=== PATIENT | female | born 1955 | race Caucasian/White ===

== ENCOUNTER 2016-12-13 10:31 | Day surgery (SDC) | payer BC ==
[2016-12-10 15:02] VITALS: BMI 25.8
[2016-12-13] MEDS ORDERED: MIDAZOLAM HCL 2 MG/2 ML SINGLE DOSE VIAL ONE (11:31)
[2016-12-13] MEDS ORDERED: ceFAZolin SODIUM 1 GM VIAL ONE (12:03)
[2016-12-13] MEDS ORDERED: ONDANSETRON 4 MG/2 ML VIAL ONE (12:05)
[2016-12-13] MEDS ORDERED: DEXAMETHASONE SOD PHOSPHATE 4 MG/1 ML VIAL ONE (12:05)
[2016-12-13] MEDS ORDERED: BUPIVACAINE HCL/PF 0.25% (2.5MG/ML) 10 ML VIAL IJ ONE (12:14)
[2016-12-13] MEDS ORDERED: ONDANSETRON 4 MG/2 ML VIAL IVPUSH ONE (13:02)
[2016-12-13] MEDS ORDERED: ONDANSETRON 4 MG/2 ML VIAL IVPUSH PRN (13:03)
[2016-12-13] MEDS ORDERED: oxyCODONE HCL 5 MG TABLET PO PRN ×2 (13:03)
[2016-12-13] MEDS ORDERED: LACTATED RINGERS SOLUTION 1,000 ML IV SCH (13:15)
--- NOTE | 2016-12-13 13:26 | OP ---
DATE OF OPERATION: 12/13/2016 PREOPERATIVE DIAGNOSIS: Left knee medial meniscal tear. POSTOPERATIVE DIAGNOSIS: Medial and lateral meniscal tears. PROCEDURE: Left knee arthroscopy with partial medial, partial lateral meniscectomies. SURGEON: Pablito Aguilar MD ADMISSION NURSE COORDINATOR: GERALD Clark. ANESTHESIA: General. POSTOPERATIVE CONDITION: Stable. COMPLICATIONS: None. TOURNIQUET TIME: 20 minutes. INDICATIONS: This is a pleasant woman who has been suffering from left knee pain. MRI demonstrated meniscal tearing. Treatment options including nonoperative versus operative management were discussed. Operative risks were reviewed in detail including bleeding, infection, neurovascular injury, need for further surgery, postoperative pain and stiffness, and progression of osteoarthritis. We discussed medical risks such as heart attack, stroke, DVT, PE, and . The patient voiced understanding. She elected to proceed. DESCRIPTION OF PROCEDURE: The patient was brought to the operating room, and after administration of general anesthesia, the left lower extremity was prepped and draped in the usual sterile fashion. A preoperative dose of antibiotics was given, and the usual time-out procedure was performed. At this point, the portals were marked out. They were injected subcutaneously with 0.25% Marcaine. The lateral portal was now incised using an 11 blade. The arthroscope was now passed into the knee. Examination of the patellofemoral joint demonstrated moderate arthrosis, more so on the patellar side. The arthroscope was now passed down the trochlea into the femoral notch. Here, the ACL and PCL were visualized to be intact. Passing the arthroscope medially, medial portal was now established under spinal needle localization. Examination of the femoral and tibial articular surfaces demonstrated mild superficial fraying of the articular cartilage. There was a tear of the posterior horn of the medial meniscus, which was complex in nature. Utilizing combination of meniscal biters and a shaver, this was debrided down to a stable base. The arthroscope was now passed into the lateral compartment. Here, a radial tear was seen at the body of the lateral meniscus. Again, utilizing the same instruments, the tear was debrided down to a stable base. At this point, the excess fluid was withdrawn from the knee. The portals were sutured using 3-0 nylon. The tourniquet was let down. Sterile dressings were placed. The patient was extubated and transferred to the recovery room in stable condition. [id number] [id number]
[2016-12-13 14:30] VITALS: TEMP 97.5
[2016-12-13 14:57] VITALS: BP 122/72; PULSE 78
== END 2016-12-13 14:55 | disposition home or self-care (01) ==
LOC: FASU 10:31
PROVIDERS: ATTEND Orthopaedic Surgery Sports Medicine
PROC: 0SBD4ZZ Excision of Left Knee Joint, Percutaneous Endoscopic Approach (ICD-10-PCS; 2016-12-13)
PROC: 0SBD4ZZ Excision of Left Knee Joint, Percutaneous Endoscopic Approach (ICD-10-PCS; principal; 2016-12-13 11:50)
DX: S83.242A Other tear of medial meniscus, current injury, left knee, initial encounter (principal); S83.282A Other tear of lateral meniscus, current injury, left knee, initial encounter; X58.XXXA Exposure to other specified factors, initial encounter; Y93.9 Activity, unspecified; Y92.9 Unspecified place or not applicable
CPT/HCPCS: 94760